=== PATIENT | female | born 1935 | race Caucasian/White ===

== ENCOUNTER 2022-01-14 11:53 | Outpatient (CLI) | payer OTHER, SELFPAY ==
--- NOTE | 2022-01-14 13:06 | ECG_ITS ---
Measurements Intervals [place] Rate: 57 P: 72 SC: 190 QRS: 4 QRSD: 149 T: 54 QT: 463 QTc: 453 Interpretive Statements SINUS BRADYCARDIA LEFT BUNDLE BRANCH BLOCK [120+ ms QRS DURATION, 80+ ms Q/S IN V1/V2, 85+ ms R IN I/aVL/V5/V6] SIGNIFICANT BASELINE ARTIFACT NO PREVIOUS ECG AVAILABLE FOR COMPARISON Electronically Signed On 01-14-2022 14:35:09 CDT by Victoriano Mayen M.D.
[2022-01-14 13:28] LABS: Basophils Absolute Auto 0.1 K/mm3 (0.0-0.1); Basophils Percent Auto 0.7 % (0.2-1.2); Eosinophils Absolute Auto 0.3 K/mm3 (0-0.3); Eosinophils Percent Auto 2.3 % (0-4.4); Hematocrit 41.6 % (37.0-47.0); Hemoglobin 13.4 g/dL (12.0-15.0); Immature Granulocyte Absolute 0.03 K/mm3 (0.00-0.031); Immature Granulocyte Percent A 0.3 % (0-0.5); Lymphocytes Percent Auto 30.7 % (18.3-44.2); Mean Corpuscular HGB Conc 32.2 g/dl (32-36); Mean Corpuscular Volume 93.3 fl (80-100); Mean Platelet Volume 9.7 fl (7.4-10.4); Monocytes Absolute Auto 0.9 K/mm3 (0.1-0.6); Monocytes Percent Auto 7.9 % (2.6-8.5); Neutrophils Absolute Auto 6.2 K/mm3 (1.3-6.7); Neutrophils Percent Auto 58.1 % (45.5-73.1); Platelet Count Result 282 k/mm3 (150-375); Red Blood Count 4.46 M/mm3 (4.2-5.4); Red Cell Distribution Width 13.1 % (11.5-14.5); White Blood Count 10.7 K/mm3 (4.5-10.0)
[2022-01-14 13:38] LABS: Alanine Aminotransferase 15 U/L (6-35); Albumin Level 4.4 g/dL (3.5-5.1); Alkaline Phosphatase 82 U/L (38-126); Anion Gap 14 mmol/L (8-16); Aspartate Amino Transferase 25 U/L (14-36); Bilirubin,Total 0.5 mg/dL (0.2-1.3); Blood Urea Nitrogen 18 mg/dL (7-17); Calcium 9.2 mg/dL (8.4-10.2); Carbon Dioxide 26 mmol/L (22-30); Chloride 99 mmol/L (98-107); Estimated Glomerular Filt Rate 59; Glucose 100 mg/dL (65-110); Potassium 4.4 mmol/L (3.4-5.0); Sodium 139 mmol/L (137-145)
[2022-01-14 13:48] LABS: INR 1.1; Prothrombin Time 13.7 Seconds (11.1-14.7)
== END 2022-01-14 11:54 | disposition home or self-care (01) ==
LOC: ANHSURGERY 12:00
PROVIDERS: PCP Family Medicine Sports Medicine; Visit Provider Urology
DX: N81.2 Incomplete uterovaginal prolapse (principal); I10 Essential (primary) hypertension; Z01.818 Encounter for other preprocedural examination; R00.1 Bradycardia, unspecified; I44.7 Left bundle-branch block, unspecified
CPT/HCPCS: 36415; 80053; 85025; 85610; 85730; 86850; 86900; 86901; 93005

== ENCOUNTER 2022-01-22 00:36 | Day surgery (SDC) | payer OTHER, SELFPAY ==
--- NOTE | 2022-01-08 10:04 | PM.IMHP ---
H&P: HPI History of Present Illness Date/Time: 01/08/22 10:04 Chief Complaint: Pelvic organ prolapse Narrative: 86-year-old with cystocele and pelvic organ prolapse. She has no stress incontinence by history but does demonstrated on urodynamics with borderline low Valsalva leak point pressure. She also has overactive bladder symptoms. We discussed options for her prolapse. She would like a vaginal procedure. She does not want abdominal procedure. She is not sexually active. She had a negative endometrial biopsy Review of Systems Review of Systems: All systems reviewed & are unremarkable except as noted in HPI and below PMFSH Past Medical History Medical History Endometrial thickening on ultrasound History of blood transfusion Hypercholesteremia Hypertension Hypothyroidism Vaginal delivery x4 Surgical History Surgical History History of bilateral tubal ligation History of bladder surgery Bladder tie up History of breast augmentation breast reduction History of cholecystectomy History of gynecological procedure EMB History of heart bypass surgery 2013 History of neck surgery Family History Family History Mother Anxiety and depression Sibling Alcoholism Anxiety and depression Diabetes mellitus Son Alcoholism Anxiety and depression Daughter Diabetes mellitus Social History Social History Smoking status: Never smoker Alcohol intake: current Alcohol use details: occasional Substance use: never Substance use type: does not use Additional living arrangements comments: Gender identity (if verbalized by the patient): Female Sexual Orientation (if Verbalized by the Patient): Straight or Heterosexual Agree to blood products: Yes Meds Home Medications and Allergies Home Medications Medication Instructions Recorded Confirmed Type aspirin 81 mg chewable tablet 81 mg PO DAILY 04/29/21 12/08/21 History ergocalciferol (vitamin D2) 1,250 1,250 mcg PO WEEKLY 04/29/21 12/08/21 History mcg (50,000 unit) capsule levothyroxine 100 mcg capsule 100 mcg PO DAILY 04/29/21 12/08/21 History losartan 100 mg tablet 100 mg PO DAILY 04/29/21 12/08/21 History metoprolol tartrate 25 mg tablet 25 mg PO DAILY 04/29/21 12/08/21 History rosuvastatin 10 mg tablet 10 mg PO DAILY 04/29/21 12/08/21 History Allergies Allergy/AdvReac Type Severity Reaction Status Date / Time No Known Allergies Allergy Unknown Verified 12/08/21 17:04 Exam Narrative: Cystocele beyond the introitus at +3 with normal apical support. Minimal urethral mobility. Alert oriented x3. Normal breathing. No acute distress Assessment and Plan Assessment and plan (1) Cystocele: Status: Acute Assessment and Plan: Will plan on a significant cystocele repair with likely perineal repair. She is not sexually active. She understands that penetrated intercourse may not be possible after this procedure. We will also plan on something for stress incontinence either a sling or a bulking agent depending on intraoperative findings. She understands risks of bleeding, infection, damage drain organs, fistula formation, bowel injury, bladder injury, recurrent or persistent stress incontinence, recurrent, persistent, recurrent prolapse. Hip and leg pain. Possible mesh related complications. She agrees to proceed (2) Female perineal laxity: Code(s): N81.89 - Other female genital prolapse Status: Acute (3) MAYUR (stress urinary incontinence, female): Code(s): N39.3 - Stress incontinence (female) (male) Status: Acute (4) Intrinsic sphincter deficiency (ISD): Code(s): N36.42 - Intrinsic sphincter deficiency (ISD) Status: Acute
--- NOTE | 2022-01-14 11:53 | PC.NURSE ---
PRE-OP INSTRUCTIONS, PLEASE READ CAREFULLY Report to the Outpatient Waiting Room, entrance under the green pavilion located off [address], at time _0615_ on date _01/22/22_. Planned Procedure Time: _0815_. Time changes happen often and if your time is changed the preop area will call you the afternoon before. - You and your visitor will be asked to self-screen and do not enter if you have any COVID symptoms. - We encourage only one visitor and NO visitors under age 16 are allowed at this time. Your visitor will receive communication by the phone number that is given day of service. - The patient visitor is requested to social distance or may leave the building when not with patient due to restrictions. - A mask is required within the hospital. Patients may have clear liquids (water, carbonated beverages, clear teas, apple juice) until 3 hours prior to surgery (0515 AM) with a maximum of 20 ounces. - No food from midnight until time of surgery Take the following medications with a SIP of water the morning of surgery: _LEVOTHYROXINE, METOPROLOL_ Medications to discontinue per DR. GARCES - _ASPIRIN 7 DAYS PRIOR TO SURGERY, Date to take last dose 01/14/22_ Please no make-up, nail romanian, hairspray, perfume, deodorant, or body powder the day of surgery. No jewelry (including any body piercings) or valuables the day of surgery, leave them at home. Please take a shower or bath the night before, or the morning of, surgery with an antibacterial soap. Wear comfortable, loose fitting clothing. - Jewelry must be removed prior to entering the operating room. Rings and piercings that are not removed may be cut off. - The hospital will not accept responsibility for valuables. - Please leave all valuables, including medications, at home the day of surgery. If you are going home after surgery, a licensed sales route driver helper must drive you home. - NO public transportation without another adult. - We recommend that an adult stay with you for 24 hours following discharge. - We also recommend that you do not drive, make important decision, drink alcoholic beverages, or take any drugs that were not prescribed by your health care provider for at least 24 hours after your discharge time. Follow any additional instructions given to you from your surgeon. If you or anyone in your household have experienced Covid symptoms in the past week, please notify your surgeon or the nurse liaison at the phone number below for possible testing. Instructions given to ____PT and asked if any additional questions and then verbalized understanding. Patient advised to call surgeon office or pre surgery nurse liaison [phone] if any additional questions.
[2022-01-14 12:23] VITALS: BP 180/64; PULSE 60; RESP 18; TEMP 36.9; O2SAT 100; BMI 27.3
[2022-01-22] VITALS (9 sets, daily range): BP systolic 131–168; BP diastolic 53–74; PULSE 55–78; RESP 12–16; TEMP 36.6–37.1; O2SAT 99–100
--- NOTE | 2022-01-22 07:18 | WPDHPUPDATE1 ---
History and Physical Update Update Date/Time: 01/22/22 07:18 History and Physical has been reviewed, including an updated exam of the patient. There are NO changes in the patient's condition. Risks, benefits, and alternatives have been discussed and questions answered. Patient agrees to proceed with procedure.
--- NOTE | 2022-01-22 07:49 | WPDANESEPPF ---
Anes - Initial Pre Proc Eval Procedure: Operation Date: 01/22/22 08:15 Proposed Procedures p Cystocele Repair, Perinealography, Possible Urethral Sling, Possible Bulkamid, - Delvis Pugh MD s Possible Colpocleisis - Delvis Pugh MD Date/Time: 01/22/22 07:49 Surgeon: Delvis Pugh MD Pre Op Diagnosis: cystocele with prolapse Patient Data Age: 86 Gender: F Height: 1.65 m Weight: 73.5 kg Last Vital Signs Temp 37.1 C 01/22/22 07:27 Pulse 78 01/22/22 07:27 Resp 16 01/22/22 07:27 BP 131/68 01/22/22 07:27 Pulse Ox 100 01/22/22 07:27 O2 Del Method Room Air 01/22/22 07:27 Allergies Allergy/AdvReac Type Severity Reaction Status Date / Time No Known Allergies Allergy Unknown Verified 01/22/22 07:32 Home Medications Medication Instructions Recorded Confirmed Type aspirin 81 mg chewable tablet 81 mg PO DAILY 04/29/21 01/22/22 History ergocalciferol (vitamin D2) 1,250 1,250 mcg PO WEEKLY 04/29/21 01/22/22 History mcg (50,000 unit) capsule levothyroxine 100 mcg capsule 100 mcg PO DAILY 04/29/21 01/22/22 History losartan 100 mg tablet 100 mg PO DAILY 04/29/21 01/22/22 History metoprolol tartrate 25 mg tablet 25 mg PO DAILY 04/29/21 01/22/22 History rosuvastatin 10 mg tablet 10 mg PO DAILY 04/29/21 01/22/22 History sulfamethoxazole 800 1 tablet BID 01/14/22 01/22/22 History mg-trimethoprim 160 mg tablet Patient hx anesthesia problems: none Family hx anesthesia problems: none Results Review: All pre-operative results and documents have been reviewed as part of the pre-operative evaluation. [facility] Past Medical History Medical History Endometrial thickening on ultrasound History of blood transfusion Hypercholesteremia Hypertension Hypothyroidism Vaginal delivery x4 Surgical History Surgical History History of bilateral tubal ligation History of bladder surgery Bladder tie up History of breast augmentation breast reduction History of cholecystectomy History of gynecological procedure EMB History of heart bypass surgery 2013 History of neck surgery Family History Family History Mother Anxiety and depression Sibling Alcoholism Anxiety and depression Diabetes mellitus Son Alcoholism Anxiety and depression Daughter Diabetes mellitus Social History Social History Smoking status: Never smoker Second hand tobacco smoke exposure: No Alcohol intake: current Alcohol use details: STATES SOCIALLY 1-2 TIMES A MONTH Substance use: current Substance use type: marijuana Other substance usage details: OCCASIONAL GUMMIE @ NOC FOR SLEEP Living arrangements: with family Additional living arrangements comments: SON (LALITA) LIVING WITH PT Gender identity (if verbalized by the patient): Female Sexual Orientation (if Verbalized by the Patient): Straight or Heterosexual Spiritual care concerns: No Agree to blood products: Yes Anes - Eval Final PreProcedure Day of Procedure 01/22/22 07:49 Patient weight: overweight Heart: regular rate and rhythm Lungs: clear to auscultation Airway: Mallampati scale class II Neurological: alert and oriented Last oral intake: >/= 8 hours ASA classification: II Emergent: no Anesthetic plan: proceed Anesthesia type and monitoring: general ETT and standard monitoring Results Review: All pre-operative results and documents have been reviewed as part of the pre-operative evaluation. Informed Consent: The patient's anesthetic plan and its attendant risks and benefits were discussed with the patient/family/POA. Questions were solicited and answers provided to the satisfaction of the patient/family/POA.
[2022-01-22] MEDS: LACTATED RINGERS 1,000 ML 30 ML IV CONT (07:53)
--- NOTE | 2022-01-22 08:21 | WPDHPUPDATE1 ---
History and Physical Update Update Date/Time: 01/22/22 08:21 History and Physical has been reviewed, including an updated exam of the patient. There are NO changes in the patient's condition. Risks, benefits, and alternatives have been discussed and questions answered. Patient agrees to proceed with procedure. We will plan repair of her pelvic organ prolapse. Possible cystocele repair, possible perineorrhaphy, possible colpocleisis, possible bulking agent, possible sling. The patient family understand that the true nature of the operation will be decided at the time of her surgery so that I can fully examine under anesthesia
[2022-01-22] MEDS: ceFAZolin 2 GM/D5W 50 ML 2 GM/50 ML BAG IVPB (08:26)
--- NOTE | 2022-01-22 09:53 | P.OP_ITS ---
Procedure Note - Detailed Date of Procedure 01/22/22 Pre-op Diagnosis cystocele with prolapse Female perineal laxity Intrinsic sphincter deficiency Post-op Diagnosis Same Procedure Performed Cystocele repair Perineal repair Cystoscopy injection of suburethral implant material Surgeon Delvis Pugh MD Anesthesia General Indications This is a woman with prolapse as well as intrinsic sphincter deficiency. She is not sexually active. We discussed all treatment options. She is here today for a pelvic organ prolapse repair. She declined pessary. She understands risks of bleeding, infection damage to the surrounding organs, fistula formation, postoperative voiding dysfunction including incontinence and retention, hip and leg pain, inability to have penetrative intercourse, dyspareunia, recurrent or persistent stress incontinence, need for ancillary procedures. She agrees to proceed Findings Large cystocele with fixed urethra and perineal laxity Description of Procedure She has correctly identified. Informed consent obtained. She from the operating room. She was given general anesthesia. She was placed in dorsal thigh position. She was prepped and draped sterile fashion. Time-out performed . I placed a [place] retractor. I placed a Bajwa catheter. I grasped the cystocele with Allis clamps. She had good apical support. She had no rectocele. The cystocele was large. I infiltrated subcutaneous tissues with local mixed with saline. I made a midline vaginal incision. I dissected out laterally and back towards the apex taking great care not to injure the vaginal wall or underlying structures. Once I was happy with my dissection I performed a standard plication cystocele repair. I used several interrupted 0 Vicryl sutures to reduce the cystocele. I took great care not to injure the underlying organs. I then trimmed excess vaginal mucosa. I closed the vaginal mucosa with a running 2-0 Vicryl suture. There was excellent support of the cystocele. I then turned my attention towards the perineum. I anesthetized a ina- shaped area of skin on the perineum. Of note she is not sexually active. I removed this area of skin. I performed a perineorrhaphy with 0 Vicryl sutures. I then used a 2 0 Vicryl to close the mucosa completing the perineorrhaphy. I then performed cystoscopy. She had moderate trabeculations. No surgical artifact the bladder or urethra. No other bladder abnormalities. I passed guidewires up both ureters to document patency and then saw clear yellow urine. I then turned my attention toward the bulking agent. I chose a site in the u rethra 2 cm distal bladder neck. I injected the bulking agent circumferentially collapsing the urethra. I used 1 syringe total. I left the bladder partially full. I assured hemostasis. I did rectal exam confirming no injury. She was awakened transferred PACU in stable condition Estimated Blood Loss -30.0 Complications No immediate complications Condition Stable Disposition PACU
--- NOTE | 2022-01-22 10:08 | SUR.PHASEI ---
1007: Simple mask removed.
== END 2022-01-22 11:35 | disposition home or self-care (01) ==
PROVIDERS: PCP Family Medicine Sports Medicine; Visit Provider Urology
PROC: (CPT 57240; principal; 2022-01-22 08:15)
DX: N81.4 Uterovaginal prolapse, unspecified (principal); N39.3 Stress incontinence (female) (male); N36.42 Intrinsic sphincter deficiency (ISD); I10 Essential (primary) hypertension; E78.00 Pure hypercholesterolemia, unspecified; E03.9 Hypothyroidism, unspecified; Z79.82 Long term (current) use of aspirin; Z95.1 Presence of aortocoronary bypass graft; F12.90 Cannabis use, unspecified, uncomplicated
CPT/HCPCS: 57240; 51715; 36415; 80053; 85025; 85610; 85730; 86850; 86900; 86901; 93005; C1758; C1769; J0690; J1100; J2405; J2704; J3010; J7030; J7120; L8606

== ENCOUNTER 2022-07-29 09:08 | Outpatient (CLI) | payer OTHER, SELFPAY ==
[2022-07-29 09:46] LABS: Alanine Aminotransferase 19 U/L (6-35); Albumin Level 4.5 g/dL (3.5-5.1); Alkaline Phosphatase 79 U/L (38-126); Anion Gap 6 mmol/L (8-16); Aspartate Amino Transferase 27 U/L (14-36); Bilirubin,Total 0.6 mg/dL (0.2-1.3); Blood Urea Nitrogen 22 mg/dL (7-17); Calcium 9.2 mg/dL (8.4-10.2); Carbon Dioxide 32 mmol/L (22-30); Chloride 102 mmol/L (98-107); Cholesterol 144 mg/dL (0-200); Creatine Kinase 83 U/L (30-135); Estimated Glomerular Filt Rate > 60; Glucose 107 mg/dL (65-110); HDL Direct 40 mg/dL; Potassium 4.6 mmol/L (3.4-5.0); Sodium 140 mmol/L (137-145); Triglycerides 87 mg/dL (<150)
[2022-07-29 09:57] LABS: LDL Cholesterol Direct 79 mg/dL
== END 2022-07-29 09:09 | disposition home or self-care (01) ==
LOC: ANHLAB 09:13
PROVIDERS: PCP Family Medicine Sports Medicine; Visit Provider Specialist
DX: E78.2 Mixed hyperlipidemia (principal)
CPT/HCPCS: 36415; 80053; 80061; 82550